=== PATIENT | female | born 1965 | race Caucasian/White ===

== ENCOUNTER 2021-06-27 16:08 | Emergency (ER) | payer SELFPAY ==
[2021-06-27] MEDS ORDERED: cloNIDine 0.1 MG TAB PO ONE (19:39)
[2021-06-27] MEDS ORDERED: HYDROcodone/ACETAMINOPHEN 5-325 MG TAB PO ONE (19:39)
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
[2021-06-27 20:37] VITALS: BP 209/81
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
== END 2021-06-27 22:20 | disposition home or self-care (01) ==
LOC: ED 16:08
DX: S40.029A Contusion of unspecified upper arm, initial encounter (principal); T74.11XA Adult physical abuse, confirmed, initial encounter; I10 Essential (primary) hypertension; J45.909 Unspecified asthma, uncomplicated; Z90.49 Acquired absence of other specified parts of digestive tract; Y08.89XA Assault by other specified means, initial encounter; Y93.89 Activity, other specified; Y92.89 Other specified places as the place of occurrence of the external cause; Y99.8 Other external cause status
CPT/HCPCS: 70486; 72040; 72072; 99284